=== PATIENT | female | born 1955 | race Caucasian/White ===

== ENCOUNTER 2021-06-13 00:59 | Day surgery (SDC) | payer MEDICARE, OTHER, SELFPAY ==
[2021-06-06 15:10] VITALS: BMI 24.5
[2021-06-13 07:49] VITALS: BP 120/72; PULSE 77; RESP 20; TEMP 36.1; O2SAT 98
--- NOTE | 2021-06-13 07:51 | WPDANESEPPF ---
Anes - Initial Pre Proc Eval Procedure: Operation Date: 06/13/21 08:30 Proposed Procedures p Colonoscopy - Jeremi Godoy MD Date/Time: 06/13/21 07:51 Surgeon: Jeremi Godoy MD Pre Op Diagnosis: diarrhea Patient Data Age: 66 Gender: F Height: 1.7 m Weight: 70.8 kg Last Vital Signs Temp 36.1 C L 06/13/21 07:49 Pulse 77 06/13/21 07:49 Resp 20 06/13/21 07:49 BP 120/72 06/13/21 07:49 Pulse Ox 98 06/13/21 07:49 Allergies Allergy/AdvReac Type Severity Reaction Status Date / Time Penicillins Allergy Intermediate Swelling Verified 06/13/21 07:47 Home Medications Medication Instructions Recorded Confirmed Type levothyroxine 75 mcg tablet 75 mcg PO DAILY 05/24/21 06/06/21 History Calcium 600 + D(3) 3 cap PO DAILY 06/06/21 06/06/21 History Florastor 2 cap BYMOUTH DAILY 06/06/21 06/06/21 History Hair And Nail 2 cap PO DAILY 06/06/21 06/06/21 History Oshwagandha 25 mg PO DAILY 06/06/21 06/06/21 History Lisseth's wort 450 mg PO DAILY 06/06/21 06/06/21 History ascorbic acid (vitamin C) 1 g PO DAILY 06/06/21 06/06/21 History aspirin [Adult Low Dose Aspirin] 81 mg PO Q48H 06/06/21 06/06/21 History cholecalciferol (vitamin D3) 125 mcg PO DAILY 06/06/21 06/06/21 History [Vitamin D3] coQ10 (ubiquinol) 200 mg PO DAILY 06/06/21 06/06/21 History ibuprofen [Advil] 200 mg PO Q48H 06/06/21 06/06/21 History inositol-choline bitartrate 1 tablet PO DAILY 06/06/21 06/06/21 History iodine (kelp) 1 tablet PO DAILY 06/06/21 06/06/21 History magnesium oxide 350 mg PO DAILY 06/06/21 06/06/21 History milk thistle 350 mg PO DAILY 06/06/21 06/06/21 History gakybukbviyo-iyn-nrxn-FA-vit K 1 tablet PO DAILY 06/06/21 06/06/21 History [Adults Multivitamin] omega-3 fatty acids [[place] 3 Fish 1,250 mg PO Q48H 06/06/21 06/06/21 History Oil] omega-3 fatty acids [[place] 3] 1 cap PO Q48H 06/06/21 06/06/21 History Patient hx anesthesia problems: none Family hx anesthesia problems: none PMFSH Past Medical History Medical History (Updated 06/13/21 @ 07:52 by Bruno Kellogg DO) Diarrhea Elevated liver enzymes Hyperlipidemia Hypothyroidism Social History Social History (Updated 05/24/21 @ 10:15 by Molly Kumar MA) Smoking status: Never smoker Alcohol intake: current Alcohol use details: wine Substance use: never Substance use type: does not use Living arrangements: with family Gender identity (if verbalized by the patient): Female Spiritual care concerns: No Agree to blood products: Yes Anes - Eval Final PreProcedure Day of Procedure 06/13/21 07:51 Patient weight: normal Heart: regular rate and rhythm Lungs: clear to auscultation and normal air movement Airway: Mallampati scale class III Neurological: alert and oriented Last oral intake: >/= 8 hours ASA classification: III Emergent: no Anesthetic plan: proceed Anesthesia type and monitoring: general GIVS and standard monitoring Informed Consent: The patient's anesthetic plan and its attendant risks and benefits were discussed with the patient/family/POA. Questions were solicited and answers provided to the satisfaction of the patient/family/POA.
[2021-06-13] MEDS: LACTATED RINGERS 1,000 ML 150 ML IV CONT (07:59)
--- NOTE | 2021-06-13 08:36 | WPDHPUPDATE1 ---
History and Physical Update Update Date/Time: 06/13/21 08:36 History and Physical has been reviewed, including an updated exam of the patient. There are NO changes in the patient's condition. Risks, benefits, and alternatives have been discussed and questions answered. Patient agrees to proceed with procedure.
[2021-06-13 08:59] VITALS: BP 126/69; PULSE 70; RESP 21; O2SAT 100
[2021-06-13 09:09] VITALS: BP 137/76; PULSE 67; RESP 18; O2SAT 100
[2021-06-13 09:19] VITALS: BP 127/82; PULSE 59; RESP 12; O2SAT 100
== END 2021-06-13 09:34 | disposition home or self-care (01) ==
PROVIDERS: PCP Nurse Practitioner Adult Health; Visit Provider Internal Medicine Gastroenterology
PROC: 0DJD8ZZ Inspection of Lower Intestinal Tract, Via Natural or Artificial Opening Endoscopic (ICD-10-PCS; CPT 45378; principal; 2021-06-13 08:30)
DX: K52.9 Noninfective gastroenteritis and colitis, unspecified (principal); K52.832 Lymphocytic colitis; K64.8 Other hemorrhoids; R94.5 Abnormal results of liver function studies; E03.9 Hypothyroidism, unspecified; E05.90 Thyrotoxicosis, unspecified without thyrotoxic crisis or storm
CPT/HCPCS: 45380; 88305; J2704; J7120

== ENCOUNTER 2021-07-16 08:29 | Outpatient (CLI) | payer MEDICARE, OTHER, SELFPAY ==
--- NOTE | ~2021-07-16 | US_ITS ---
EXAMINATION: US abdomen limited EXAM DATE: 07/16/2021 08:57 INDICATION: R74.8 - Abnormal levels of other serum enzymes . TECHNIQUE: Multiple grayscale and Doppler images of the abdomen right upper quadrant were obtained (b y a technologist who performed the scan) and subsequently reviewed. There is no prior study for jaylyn mc. FINDINGS: The pancreatic head and body are normal in appearance. The pancreatic tail is not visualized. The l iver has normal echogenicity and contour. There are no focal liver lesions identified. There is no evidence of intrahepatic biliary duct dilation. Portal venous flow was seen in the hepatopedal, nor mal direction and has normal Doppler waveform. No right-sided hydronephrosis. Common bile duct measures 3 mm, which is normal. The gallbladder wall is normal in thickness, with ex pected amount of distention. No sonographic evidence of pericholecystic fluid. There is no cholelit hiases. Technologist performing exam reports patient did not demonstrate sonographic Hadley's sign. Please note that this sign is less reliable in patients who have received pain medication. IMPRESSION: Unremarkable abdominal ultrasound exam. Reviewed, dictated and finalized at location A.
== END 2021-07-16 08:30 | disposition home or self-care (01) ==
LOC: ANHIMG 08:34
PROVIDERS: PCP Nurse Practitioner Adult Health; Visit Provider Nurse Practitioner Family
DX: R74.8 Abnormal levels of other serum enzymes (principal)
CPT/HCPCS: 76705